=== PATIENT | female | born 1985 | race Caucasian/White ===

== ENCOUNTER 2017-04-30 06:15 | Inpatient (IN) ==
[2017-04-30] MEDS ORDERED: Clindamycin 900 MG/50 ML 900 MG/50 ML IV.SOLN IVPB ONE (06:19)
[2017-04-30] MEDS ORDERED: Metoclopramide 10 MG/2 ML VIAL IVP ONE (06:19)
[2017-04-30] MEDS ORDERED: Gentamicin 120 MG in 0.9 % Sodium Chloride 100 ML IVPB ONE (06:19)
[2017-04-30] MEDS ORDERED: Famotidine 20 MG/2 ML VIAL IVP ONE (06:19)
--- NOTE | 2017-04-30 06:25 | OB/GYN History & Physical ---
Date of Encounter: 04/30/17 Time of Encounter: 06:25 Assessment and Plan (1) and not yet delivered in third trimester Current visit: Yes Status: Acute (2) 39 weeks gestation of Current visit: Yes Status: Acute (3) Previous section complicating Current visit: Yes Status: Acute Patient will be scheduled for a repeat low transverse section with bilateral partial salpingectomy (4) Family planning advice Current visit: Yes Status: Acute History of Present Illness HPI: Ms. Yanez is a 31 year old female 3 para 2 at 39-0/7 weeks by a 9-2/7 week ultrasound who presented for repeat low transverse section with bilateral tubal ligation. Patient has a history of 2 previous sections and was advised we would schedule her at 39 weeks to prevent her from going into labor. Patient is wanting a tubal ligation the risks and benefits of the tubal had been expanded to patient with failure rate of 5-8 per thousand with increased risk of ectopic if was to occur. Patient denies any leaking of fluid she has been having occasional contractions no bleeding. Patient is GBS negative rubella negative a positive Past Med Surg Social Fam HX - Past Medical History Source: patient, old records reviewed Medical history: no medical history Psychiatric history: no psych history - Past Surgical History Surgical History: no surgical history, (x2) - Social History Smoking Status: Former smoker Smokeless Tobacco Status: No Alcohol use: none Drug use: none Occupational status: employed Current living situation: Home - Independent Activity Level: Independent ambulation Recent Out of Country Travel Within the Last 8 Weeks: No Exposure or Possible Exposure to Illness During Travel: No - Additional Family History Additional family history: Family history noncontributory Obstetrical History - Pregnancies : 3 Para: 2 Term: 2 : 0 Ab's: 0 Livin Medications and Allergies Vit/Iron Fumarate/FA [ Tablet] 1 each PO DAILY 12/30/16 [ History] 3 Allergy/AdvReac Type Severity Reaction Status Date / Time Amoxicillin Allergy Hives Verified 12/30/16 00:41 Review of System OB All systems PM: reviewed and no additional remarkable complaints except as stated Exam - Constitutional Constitutional: well developed, well nourished, no acute distress, average body habitus - HEENT HEENT: EOMI, PERRL, Mucus Membranes Moist - Neck Neck exam: full ROM - Lungs Respiratory exam: CTAB - Cardiovascular Cardiovascular exam: RRR - Abdomen Abdomen: Present: bowel sounds normal, gravid - Vagina Vagina: Present: normal moisture - Cervix Dilation: 0 Effacement: 50 Station: -3 ( heart tones 140s reactive occasional contractions seen) - Uterus Uterus exam: Present: normal size Results All other labs normal.
[2017-04-30] MEDS ORDERED: Oxytocin 20 units/ LR 1000 mL 20 UNIT/1,000 ML BAG IVC SCH ×2 (06:30→12:44)
[2017-04-30 07:11] LABS: Amphetamine Screen,Urine Negative ng/mL (Cutoff=1000); Barbiturate Screen,Urine Negative ng/mL (Cutoff=200); Benzodiazepines Screen,Urine Negative ng/mL (Cutoff=200); Cannabinoid Screen,Urine Negative ng/mL (Cutoff = 50); Cocaine Screen,Urine Negative ng/mL (Cutoff= 300); Opiate Screen,Urine Negative ng/mL (Cutoff=300); Phencyclidine Screen,Urine Negative ng/mL (Cutoff=25)
[2017-04-30 07:22] LABS: Basophils % 0.1 %; Eosinophils % 0.3 %; Hematocrit 33.3 % (35.3-44.9); Hemoglobin 11.3 g/dL (11.5-15.4); Immature Granulocytes % 0.3 % (0-4); Lymphocytes # 2.3 K/mcL (0.6-4.6); Lymphocytes % 30.9 %; Mean Corpuscular HGB Conc 33.9 g/dL (31.6-35.5); Mean Corpuscular Hemoglobin 30.6 pg (28.0-33.3); Mean Corpuscular Volume 90.2 fL (83.0-100.0); Mean Platelet Volume 11.9 fL (9.4-12.4); Monocytes # 0.4 K/mcL (0.0-1.3); Monocytes % 6.1 %; Neutrophils # 4.5 K/mcL (1.6-8.9); Platelet Count 208 K/mcL (140-400); Red Blood Count 3.69 M/mcL (3.82-4.97); Red Cell Distribution Width 13.5 % (11.5-14.5); Segmented Neutrophils % 62.3 %
[2017-04-30] MEDS: Ringers Solution, Lactated 1,000 ML IVC SCH ×2 (07:47→08:42)
--- NOTE | 2017-04-30 08:09 | Anesthesia Evaluation PreOp ---
Date of Encounter: 04/30/17 Time of Encounter: 08:00 - Past History Planned Operation: Repeat C Section Cardiac History: Denies any Significant Hx Pulmonary History: Denies Any Significant HX ATOMIZER ASSEMBLER History: Denies Any Significant HX Other Medical History: Denies Any Significant HX Anesthesia History: No Prior Anesthetic Complications : Yes (39 weeks ) Alcohol Use: none Drug use: none Medications and Allergies Vit/Iron Fumarate/FA [ Tablet] 1 each PO DAILY 12/30/16 [ History] 3 Allergy/AdvReac Type Severity Reaction Status Date / Time Amoxicillin Allergy Hives Verified 04/30/17 06:47 - Meds/Allergy Pre-op Review Medications Reviewed: Yes Allergies Reviewed: Yes Beta Blockers on Current Med List: No Anesthesia Results - Labs 04/30/17 06:40 Anesthesia Exam O2 Sat Height 1.68 m Weight 84.1 kg Height: 5'6 Weight: 185 lbs NPO (# of Hours): MN Pain Scale: 0 - HEENT Pupil (Motor): Pupils equal, EOMI Mallampati: II Teeth: Normal Oral Opening: Greater than 3 - ATOMIZER ASSEMBLER LOC: Oriented ATOMIZER ASSEMBLER Motor: Normal RUE, Normal LUE, Normal RLE, Normal LLE, Normal Face ATOMIZER ASSEMBLER Sensory: Normal: RUE, LUE, RLE, LLE, Face - Cardiac Rhythm: Regular Murmur: None JVD: No Carotid Bruit: No - Pulmonary Breath Sounds: bilateral Clear Respiratory Effort: Symmetrical Anesthesia Assess/Plan ASA Score: 2 Modified [place] Scale for Level of Consciousness: Cooperative, oriented, and tranquil Anesthetic Plan: Regional Monitoring Plan: Standard Monitors Recovery Plan: PACU (SDiscussed SAB, possible GA, agrees to proceed)
--- NOTE | 2017-04-30 08:19 | OB/GYN Procedure Note ---
Section - Date of procedure: 04/30/17 Preop diagnosis: other (IUP 39 0/7 wks, previous sections x2, desires sterilization) Post-op diagnosis: same Procedure: repeat low transverse, bilateral tubal ligation Surgeon: Yobani Chandler Estimated blood loss (cc): 700 Was there an assistant front desk manager present: No Anesthesiologist: John Jackson [employer] Technician: Raquel Vale Anesthesia Type: Spinal section complications: none Disposition: L&D Recovery Room Specimens: Right tube segment, Left tube segment - Infant (s) A Infant Delivery Date: 04/30/17 Infant Delivery Time: 09:26 Presentation: vertex Position: ADDI Route of delivery: other (section) Gender: Male Viability: Viable Pounds: 8 Ounces: 0 Gram Weight: 3.635 kg at 1 minute: 9 at 5 minutes: 10 Shoulder Dystocia: not encountered Placenta: spontaneous Cord: nuchal cord, 3 umbilical vessels, nuchal reduced - Narrative Narrative: Patient is a 31-year-old 3 para 2 at 39-0/7 weeks who presented for repeat section with tubal ligation. Patient has a history of 2 previous sections and was scheduled 39 weeks for repeat patient is also wanting a tubal ligation the risks and benefits of the tubal had previous been explained with failure rate of 5-8 per thousand with increased risk of ectopic if was to occur. Patient was miquel on admission but no cervical change Procedure: Patient was taken to the operating room where spinal anesthesia was found to be adequate. She was placed in the dorsal lithotomy position prepped and draped in usual fashion. Timeout was then obtained. A Pfannenstiel incision was made with a scalpel removing all scar. The incision was then carried down to the underlying tissue to the fascia was identified. The fascia was nicked in the midline extended laterally with the Castrejon scissors. The superior and inferior edges of the fascia grasped tented up dissected off the rectus muscles. Rectus muscles were in the midline parietal peritoneum was identified tented up and entered sharply. This was extended superiorly and a fairly with Metzenbaum scissors. The bladder blade was inserted the vesicouterine peritoneum was identified tented up and entered sharply. This was extended laterally the bladder flap was created digitally. The lower uterine segment was incised with scalpel and extended laterally with digital manipulation. Membranes are ruptured clear fluid noted. The 's head was delivered followed by delivery of the body. The cord was clamped and cut and infant was handed off to waiting pediatric team. Cord blood was collected and placenta was sent. Spontaneous labor 3 vessel cord. Uterus was exteriorized and cleared of all clots and debris. The lower uterine segment was closed using 0 Vicryl in a running locking stitch by a 2 layer closure. We did have good hemostasis attention was then turned to the fallopian tubes. Each tube was grasped at the ampullary region and a 2 cm portion of the tube was then suture ligated with 0 plane 2 and the knuckle was excised including the fimbrea. Good hemostasis was noted both ovaries were normal. Uterus was returned to the abdomen the gutters cleaned of all clots and debris then copiously irrigated. The fascia was then closed using a #1 stratafix in a running stitch and the skin was closed using a 4-0 Vicryl and a subcuticular manner. All needles lap sponge counts were correct 3 she did receive preoperative antibiotics and a PRIMEO dressing was applied, patient was taken to the recovery room in stable condition.
[2017-04-30] MEDS ORDERED: *HR* FentaNYL (PF) 100 MCG/2 ML VIAL ONE (08:51)
[2017-04-30] MEDS ORDERED: Morphine Sulfate/PF 5mg/10mL Vial ONE (08:51)
[2017-04-30] MEDS ORDERED: EPHEDrine 50 MG/ML VIAL ONE (08:56)
[2017-04-30] MEDS ORDERED: Ondansetron 4 MG/2 ML VIAL ONE (09:06)
[2017-04-30] MEDS ORDERED: *HR* Oxytocin 10 UNIT/ML VIAL IM ONE (09:08)
[2017-04-30] MEDS ORDERED: MORPHINE SUL Oral CONC 10 MG/0.5 ML ORAL.SYG SL PRN (09:30)
[2017-04-30] MEDS ORDERED: Ondansetron 4 MG/2 ML VIAL IVP ONE (09:30)
[2017-04-30] MEDS ORDERED: Acetaminophen IV 1,000 MG/100 ML INFUS..BTL IVPB ONE (09:30)
[2017-04-30] MEDS ORDERED: *HR* Promethazine 25 MG/ML VIAL IVP PRN (09:30)
[2017-04-30] MEDS ORDERED: *HR* OxyCODONE Immed Rel 5 MG TABLET PO PRN (09:30)
[2017-04-30] MEDS ORDERED: Ondansetron 4 MG/2 ML VIAL IVP PRN (12:44)
[2017-04-30] MEDS ORDERED: Measles/Mumps/Rubella Vacc 0.5 ML VIAL SQ ONE (12:44)
[2017-04-30] MEDS ORDERED: Sennosides 8.6 MG TABLET PO PRN (12:44)
[2017-04-30] MEDS ORDERED: Simethicone 80 MG TAB.CHEW PO PRN (12:44)
[2017-04-30] MEDS ORDERED: Metoclopramide 10 MG/2 ML VIAL IVP PRN (12:44)
[2017-04-30] MEDS ORDERED: Ringers Solution, Lactated 1,000 ML IVC SCH (12:44)
[2017-04-30] MEDS: *HR* OxyCODONE/APAP 5/325 TABLET PO PRN ×2 (19:03→23:16)
--- NOTE | 2017-04-30 22:07 | Anesthesia Evaluation Post Op ---
Date of Encounter: 04/30/17 Time of Encounter: 12:20 - Vital Signs Vital Signs: VSS - Lungs Lungs: Clear Ascult./Percussion - Airway Airway: Non-obstructed - Cardiovascular Regular Rate - Mental Status Mental Status: Alert & Oriented, Answers Appropriately - Pain Pain Scale: 2 Pain Scale used: Numeric (1 - 10) - Nausea Vomiting Nausea Vomiting: Responds to treatment with IV Meds (no emesis. nausea relieved by a dose of phenergan.) - Hydration Hydration: NPO, Graham catheter - Discharge PostOp Status: Transfer Patient to floor
[2017-05-01] MEDS: *HR* OxyCODONE/APAP 5/325 TABLET PO PRN ×4 (03:10→20:02)
[2017-05-01 05:09] LABS: Basophils % 0.1 %; Eosinophils % 0.1 %; Hematocrit 30.1 % (35.3-44.9); Hemoglobin 9.8 g/dL (11.5-15.4); Immature Granulocytes % 0.4 % (0-4); Lymphocytes # 1.4 K/mcL (0.6-4.6); Lymphocytes % 17.3 %; Mean Corpuscular HGB Conc 32.6 g/dL (31.6-35.5); Mean Corpuscular Hemoglobin 30.8 pg (28.0-33.3); Mean Corpuscular Volume 94.7 fL (83.0-100.0); Monocytes # 0.5 K/mcL (0.0-1.3); Monocytes % 5.9 %; Neutrophils # 6.1 K/mcL (1.6-8.9); Platelet Count 171 K/mcL (140-400); Red Blood Count 3.18 M/mcL (3.82-4.97); Red Cell Distribution Width 13.4 % (11.5-14.5); Segmented Neutrophils % 76.2 %
[2017-05-01] MEDS: Prenatal Vit/FA 1 EACH TABLET PO SCH (08:05)
[2017-05-01] MEDS ORDERED: Prenatal Vit/FA 1 EACH TABLET PO SCH (09:00)
[2017-05-01] MEDS: Ibuprofen 600 MG TABLET PO PRN ×2 (10:32→22:55)
--- NOTE | 2017-05-01 12:36 | OB/GYN Progress Note ---
Date of Encounter: 05/01/17 Time of Encounter: 12:34 - Assessment and Plan (1) Status post repeat low transverse section Current Visit: Yes Status: Acute Continue routine postop/ care possible discharge home tomorrow (2) Status post tubal ligation Current Visit: Yes Status: Acute Continue routine care Subjective - Subjective Principal diagnosis: Postop/ day 1 repeat c/s with BPS Interval history: Patient is postop day 1 following a repeat c/s with BPS. Patient is eating regular diet and meeting day 1 milestones. Patient denies any questions or concerns. Patient reports: appetite normal, voiding normally, pain well controlled, ambulating normally : doing well, bottle feeding Objective - Vital Signs Latest vital signs: Vital Signs Temp Pulse Resp BP Pulse Ox 05/01/17 07:55 97.5 F L 93 12 109/62 97 05/01/17 03:05 12 05/01/17 00:10 12 04/30/17 19:15 97.7 F 90 16 111/70 96 04/30/17 15:53 97 F L 68 16 108/60 99 04/30/17 14:30 97 F L 78 16 109/72 99 04/30/17 13:30 97 F L 74 16 111/69 98 04/30/17 13:00 97 F L 16 122/75 97 Intake and Output 04/30/17 05/01/17 05/01/17 23:59 07:59 15:59 Output Total 350 / 350 1100 / 1100 Balance -350 / -350 -1100 / -1100 Output: Catheter 350 / 350 1100 / 1100 - Exam Lungs: bilateral: normal Extremities: Present: normal Abdomen: Present: normal appearance, soft Incision: Present: normal, dry, intact, dressed (medipore dressing) - Labs Labs: Laboratory Results - last 24 hr 05/01/17 04:31 WBC 8.1 RBC 3.18 L Hgb 9.8 L D Hct 30.1 L MCV 94.7 MCH 30.8 MCHC 32.6 RDW 13.4 Plt Count 171 MPV 12.0 Immature Gran % 0.4 Seg Neutrophils % 76.2 Lymphocytes % 17.3 Monocytes % 5.9 Eosinophils % 0.1 Basophils % 0.1 Neutrophils # 6.1 Lymphocytes # 1.4 Monocytes # 0.5 Eosinophils # 0.0 Basophils # 0.0
[2017-05-01] MEDS ORDERED: MOM Conc 10 ML UD.LIQ PO SCH (21:00)
[2017-05-02] MEDS: *HR* OxyCODONE/APAP 5/325 TABLET PO PRN ×3 (01:14→12:58)
[2017-05-02] MEDS: Ibuprofen 600 MG TABLET PO PRN (08:23)
[2017-05-02] MEDS: Prenatal Vit/FA 1 EACH TABLET PO SCH (08:24)
[2017-05-02 08:40] VITALS: BP 113/70
--- NOTE | 2017-05-02 14:18 | Discharge Summary ---
Date of Encounter: 05/02/17 Time of Encounter: 14:13 - Discharge Diagnosis (1) anemia Priority: Secondary Status: Acute Comments: Continue iron BID (2) Status post repeat low transverse section Priority: Primary Status: Acute Comments: Pain well controlled with PO pain meds VSS Tolerating regular diet Voiding independently Passing flatus, but no BM yet Lochia light Discharge home (3) Status post tubal ligation Priority: Secondary Status: Acute - Discharge Medications Prescriptions: OxyCODONE/APAP 5/325 [Percocet 5/325 MG] 1 each PO Q4HR PRN 5 Days #30 tablet PRN Reason: Moderate pain 4-6 Ibuprofen [Motrin] 600 mg PO Q6HR PRN #30 tablet PRN Reason: Cramping Docusate [Colace] 100 mg PO BID #60 capsule Ferrous Sulfate 325 mg PO BID #60 tablet Home Medications: Vit/Iron Fumarate/FA [ Tablet] 1 each PO DAILY 12/30/16 [ History] Docusate [Colace] 100 mg PO BID #60 capsule 05/02/17 [Rx] Ferrous Sulfate 325 mg PO BID #60 tablet 05/02/17 [Rx] Ibuprofen [Motrin] 600 mg PO Q6HR PRN #30 tablet 05/02/17 [Rx] OxyCODONE/APAP 5/325 [Percocet 5/325 MG] 1 each PO Q4HR PRN 5 Days #30 tablet [Rx] Simethicone [Gas-X] 80 mg PO TID PRN tab.chew 05/02/17 [Rx] Allergies/Adverse Reactions: 3 Allergy/AdvReac Type Severity Reaction Status Date / Time Amoxicillin Allergy Hives Verified 04/30/17 06:47 Data Procedures and tests throughout hospitalization: Laboratory Tests 04/30/17 04/30/17 05/01/17 06:40 06:50 04:31 WBC 7.3 8.1 RBC 3.69 L 3.18 L Hgb 11.3 L 9.8 L D Hct 33.3 L 30.1 L MCV 90.2 94.7 MCH 30.6 30.8 MCHC 33.9 32.6 RDW 13.5 13.4 Plt Count 208 171 MPV 11.9 12.0 Immature Gran % 0.3 0.4 Seg Neutrophils % 62.3 76.2 Lymphocytes % 30.9 17.3 Monocytes % 6.1 5.9 Eosinophils % 0.3 0.1 Basophils % 0.1 0.1 Neutrophils # 4.5 6.1 Lymphocytes # 2.3 1.4 Monocytes # 0.4 0.5 Eosinophils # 0.0 0.0 Basophils # 0.0 0.0 Urine Opiates Screen Negative Ur Barbiturates Screen Negative Ur Phencyclidine Scrn Negative Ur Amphetamines Screen Negative U Benzodiazepines Scrn Negative Urine Cocaine Screen Negative U Marijuana (THC) Screen Negative Date of admission: 04/30/17 06:15 Primary care physician: Tresa Maradiaga CNP Discharging clinician: Renae Zabala Anticipated date of discharge: 05/02/17 - Patient Status Disposition: Home, Self-Care Condition: Good Functional capacity at discharge: independent ambulation Overall status at discharge: patient is progressing back to baseline - Discharge Instructions Follow Up With: Tresa Maradiaga CNP [Primary Care Provider] - Yobani Chandler DO [Partnered Physician] - - Diet and Activity Activity: increase activity as tolerated Diet: regular diet Hospital Course Reason for admission: section Delivery: section Episiotomy: none Laceration: none Other procedures: tubal ligation complications: none Discharge diagnosis: IUP at term delivered baby: male Time Attestation: Total time spent providing and/or coordinating discharge services: Time Spent: Less than 30 minutes - VTE Documentation of Mechanical Device: Intermittent pneumatic compression device Exam - Constitutional Vitals: Temp Pulse Resp BP Pulse Ox 97.7 F 80 14 113/70 97 05/02/17 08:38 05/02/17 08:38 05/02/17 08:38 05/02/17 08:38 05/02/17 08:38 General appearance IM: A&O X 3 - Respiratory Respiratory exam: Present: CTAB - Cardiovascular Cardiovascular exam IM: Present: RRR, +S1, +S2 - GI/Abdominal GI/Abdominal exam IM: normal bowel sounds Incision: normal, dry, intact - Rectal Rectal exam: deferred - Uterine Tone: Firm Uterus Position: At Umbilicus, Midline - Extremities Exam Extremities exam IM: Present: normal capillary refill - Neurological Exam Neurological exam: strengths equal and symetr throughout - Psychiatric Additional comments: Pt feeling mentally well. No history of depression. S/sx of PPD discussed with patient.
== END 2017-05-02 13:30 | disposition home or self-care (01) | DRG 540 ==
LOC: 1NENULAB 06:15 → 1NENUOBS 12:39
PROVIDERS: ADMIT Obstetrics & Gynecology; ATTEND Obstetrics & Gynecology